=== PATIENT | female | born 1985 | race Caucasian/White ===

== ENCOUNTER 2016-11-28 11:42 | Emergency (ER) | payer MEDICAID ==
[~2016-11-28] VITALS: Ht 157.5 cm; Wt 66.5 kg
[2016-11-28 11:56] VITALS: BP 133/89
[2016-11-28] MEDS ORDERED: DIPH,PERTUSS(ACELL),TET VAC/PF 0.5 ML IM-VACC ONE ×2 (13:30→13:49)
[2016-11-28] MEDS ORDERED: KETOROLAC 30 MG/1 ML IM ONE (13:30)
[2016-11-28] MEDS ORDERED: KETOROLAC 30 MG/1 ML ONE (13:49)
== END 2016-11-28 14:36 | disposition home or self-care (01) ==
LOC: ED 13:07
DX: S16.1XXA Strain of muscle, fascia and tendon at neck level, initial encounter (principal); S80.01XA Contusion of right knee, initial encounter; S50.02XA Contusion of left elbow, initial encounter; S50.12XA Contusion of left forearm, initial encounter; J45.909 Unspecified asthma, uncomplicated; S80.02XA Contusion of left knee, initial encounter; Y04.0XXA Assault by unarmed brawl or fight, initial encounter; Y93.89 Activity, other specified; Y92.89 Other specified places as the place of occurrence of the external cause; Y99.8 Other external cause status; Z23 Encounter for immunization
CPT/HCPCS: 73080; 73090; 73560; 90471; 90715; 96372; 99284; J1885

== ENCOUNTER 2017-05-29 10:51 | Emergency (ER) | payer MEDICAID ==
[~2017-05-29] VITALS: Ht 157.5 cm; Wt 67.9 kg
[2017-05-29] MEDS ORDERED: ALBUTEROL/IPRATROPIUM 2.5MG/0.5MG, 3 ML ONE (11:22)
[2017-05-29] MEDS ORDERED: ALBUTEROL/IPRATROPIUM 2.5MG/0.5MG, 3 ML NPPB ONE (11:30)
[2017-05-29 12:35] VITALS: BP 122/75
== END 2017-05-29 12:37 | disposition home or self-care (01) ==
LOC: ED 11:18
DX: J20.9 Acute bronchitis, unspecified (principal); B96.89 Other specified bacterial agents as the cause of diseases classified elsewhere; K21.9 Gastro-esophageal reflux disease without esophagitis; J45.909 Unspecified asthma, uncomplicated
CPT/HCPCS: 71020; 93005; 94640; 99284; J7512; J7620

== ENCOUNTER 2018-01-02 20:16 | Emergency (ER) | payer SELFPAY ==
[~2018-01-02] VITALS: Ht 162.6 cm; Wt 67.3 kg
[2018-01-02 20:17] VITALS: BP 149/94
[2018-01-02] MEDS ORDERED: SULFAMETH./TRIMETHOPRIM DS 800MG/160MG TABLET ONE (20:48)
[2018-01-02] MEDS ORDERED: CEPHALEXIN 500 MG CAPSULE ONE (20:48)
[2018-01-02] MEDS ORDERED: CEPHALEXIN 500 MG CAPSULE PO ONE (21:00)
[2018-01-02] MEDS ORDERED: SULFAMETH./TRIMETHOPRIM DS 800MG/160MG TABLET PO ONE (21:00)
== END 2018-01-02 21:16 | disposition home or self-care (01) ==
LOC: ED 21:10
DX: L03.113 Cellulitis of right upper limb (principal); K21.9 Gastro-esophageal reflux disease without esophagitis
CPT/HCPCS: 99283

== ENCOUNTER 2018-11-19 08:29 | Emergency (ER) | payer MEDICAID, OTHER ==
[~2018-11-19] VITALS: Ht 160 cm; Wt 65.4 kg
--- NOTE | 2018-11-19 08:52 | NUR ---
PT STATES SOB, WHEEZING, VOMITING AND CHILLS. STARTED FEELING ILL 3 DAYS AGO
--- NOTE | 2018-11-19 09:17 | NUR ---
TO XRAY VIA W/C
[2018-11-19] MEDS ORDERED: DEXAMETHASONE 4 MG TABLET ONE (09:21)
[2018-11-19] MEDS ORDERED: DEXAMETHASONE 4 MG TABLET PO ONE (09:30)
[2018-11-19 10:06] VITALS: BP 116/62
== END 2018-11-19 10:57 | disposition home or self-care (01) ==
LOC: ED 10:19
DX: J45.41 Moderate persistent asthma with (acute) exacerbation (principal); K21.9 Gastro-esophageal reflux disease without esophagitis
CPT/HCPCS: 71046; 99283

== ENCOUNTER 2019-01-24 07:03 | Emergency (ER) | payer MEDICAID ==
[~2019-01-24] VITALS: Ht 154.9 cm; Wt 66.0 kg
[2019-01-24 07:09] VITALS: BP 164/97
[2019-01-24] MEDS ORDERED: INHALER (07:21)
[2019-01-24] MEDS ORDERED: ALBUTEROL SULFATE 2.5 MG/3 ML NPPB ONE (07:30)
[2019-01-24] MEDS ORDERED: ALBUTEROL SULFATE 2.5 MG/3 ML ONE (07:46)
[2019-01-24 07:58] LABS: RAPID INFLUENZA A Negative (Negative); RAPID INFLUENZA B Negative (Negative)
== END 2019-01-24 08:53 | disposition home or self-care (01) ==
LOC: ED 07:55
DX: B34.9 Viral infection, unspecified (principal); K21.9 Gastro-esophageal reflux disease without esophagitis; J45.909 Unspecified asthma, uncomplicated
CPT/HCPCS: 71046; 87400; 94640; 99284; J7512; J7613

== ENCOUNTER 2019-08-06 11:25 | Emergency (ER) | payer MEDICAID ==
[~2019-08-06] VITALS: Ht 157.5 cm; Wt 64.0 kg
[~2019-08-06 11:25] MED LIST: INHALER
[2019-08-06 12:19] VITALS: BP 129/71
[2019-08-06] MEDS ORDERED: HYDROcodone/APAP 5/325 TABLET PO ONE (13:00)
[2019-08-06] MEDS ORDERED: HYDROcodone/APAP 5/325 TABLET ONE (13:01)
--- NOTE | 2019-08-06 13:04 | NUR ---
PT MEDICATED PER PAIN.
--- NOTE | 2019-08-06 13:09 | NUR ---
pt here for upper left dental pain. pt medicated. Patient/Caregiver given discharge instructions and they have confirmed that they understand the instructions. Patient ambulatory with steady gait.
== END 2019-08-06 13:12 | disposition home or self-care (01) ==
LOC: ED 13:02
DX: K08.89 Other specified disorders of teeth and supporting structures (principal); J45.909 Unspecified asthma, uncomplicated; K21.9 Gastro-esophageal reflux disease without esophagitis; Z98.890 Other specified postprocedural states
CPT/HCPCS: 99283

== ENCOUNTER 2020-01-06 08:36 | Emergency (ER) | payer MEDICAID ==
[~2020-01-06] VITALS: Ht 162.6 cm; Wt 63.0 kg
--- NOTE | 2020-01-06 08:50 | NUR ---
PT PRESENTS TO ED WITH LOWER ABDOMINAL PAIN AND CRAMPING, SPOTTING OFF AND ON X5 DAYS. PT REPORTS LMP 11/02/19. HX OF TUBAL , PT CONCERNED THIS IS WHAT SHE IS CONCERNED ABOUT. DENIES URINARY SYMPTOMS.
[2020-01-06 09:38] LABS: BASOPHILS # (AUTO) 0.03 x10^3/uL (0-0.1); BASOPHILS % (AUTO) 0 % (0-1); EOSINOPHILS # (AUTO) 0.09 x10^3/uL (0-0.4); EOSINOPHILS % (AUTO) 1 % (1-7); LYMPHOCYTES # (AUTO) 1.81 x10^3/uL (1-3.4); LYMPHOCYTES % (AUTO) 16 % (22-44); MD NO; MEAN CORPUSCULAR HGB CONC 33.5 g/dL (32.4-35.8); MEAN CORPUSCULAR VOLUME 86.4 fL (80-100); MEAN PLATELET VOLUME 9.1 fL (7.4-10.4); MONOCYTES # (AUTO) 0.83 x10^3/uL (0.2-0.8); MONOCYTES % (AUTO) 7 % (2-9); NEUTROPHILS # (AUTO) 8.54 x10^3/uL (1.8-6.8); NEUTROPHILS % (AUTO) 76 % (42-75); PLATELET COUNT 237 x10^3/uL (130-400); RED BLOOD COUNT 4.56 x10^6/uL (3.82-5.3); RED CELL DISTRIBUTION WIDTH 13.7 % (9.6-15.2)
[2020-01-06 09:44] LABS: ANION GAP 6 mmol/L (5-15); CALCIUM 9.2 mg/dL (8.5-10.1); CHLORIDE 107 mmol/L (98-107); CREATININE 0.74 mg/dL (0.55-1.02)
[2020-01-06 11:16] VITALS: BP 130/81
== END 2020-01-13 09:24 | disposition home or self-care (01) ==
LOC: ED 10:34
DX: O20.0 Threatened abortion (principal); O99.511 Diseases of the respiratory system complicating pregnancy, first trimester; K21.9 Gastro-esophageal reflux disease without esophagitis; J45.909 Unspecified asthma, uncomplicated; Z3A.08 8 weeks gestation of pregnancy
CPT/HCPCS: 36415; 76801; 80048; 82040; 84702; 85025; 86901; 99284

== ENCOUNTER 2020-05-17 18:34 | Emergency (ER) | payer MEDICAID ==
[~2020-05-17] VITALS: Ht 157.5 cm; Wt 71.7 kg
[2020-05-17 18:38] VITALS: BP 127/82
--- NOTE | 2020-05-17 19:07 | NUR ---
PT TO ER WITH C/O OF WELTS AROUND BODYPT STATES 25 WEEKS AT THIS TIME
--- NOTE | 2020-05-17 19:10 | NUR ---
L AND D NOTIFIED PT IN ER AND WILL BE DOWN FOR BABY CHECK
[2020-05-17] MEDS ORDERED: DIPHENHYDRAMINE 25 MG CAPSULE ONE (19:15)
[2020-05-17] MEDS ORDERED: FAMOTIDINE 20 MG TABLET ONE (19:15)
--- NOTE | 2020-05-17 19:28 | NUR ---
FHT 130s TO 140s
[2020-05-17] MEDS ORDERED: DIPHENHYDRAMINE 25 MG CAPSULE PO ONE (19:30)
[2020-05-17] MEDS ORDERED: FAMOTIDINE 20 MG TABLET PO ONE (19:30)
== END 2020-05-17 19:46 | disposition home or self-care (01) ==
LOC: ED 18:45
DX: O26.892 Other specified pregnancy related conditions, second trimester (principal); L50.0 Allergic urticaria; J45.909 Unspecified asthma, uncomplicated; K21.9 Gastro-esophageal reflux disease without esophagitis; Z3A.25 25 weeks gestation of pregnancy
CPT/HCPCS: 99283; Q0163

== ENCOUNTER 2020-08-09 10:12 | Emergency (ER) | payer MEDICAID ==
[~2020-08-09] VITALS: Ht 157.5 cm; Wt 78.2 kg
[2020-08-09 10:20] VITALS: BP 133/81
== END 2020-08-09 10:59 | disposition home or self-care (01) ==
LOC: ED 10:51
DX: K08.89 Other specified disorders of teeth and supporting structures (principal); K21.9 Gastro-esophageal reflux disease without esophagitis; J45.909 Unspecified asthma, uncomplicated
CPT/HCPCS: 99283